=== PATIENT | female | born 1930 | race Caucasian/White ===

== ENCOUNTER 2018-04-15 14:16 | Emergency (ER) | payer MEDICARE ==
[~2018-04-15 14:16] MED LIST: ACE325 PO; ALP5 PO; ALPR-699 PO; ANUHCS PR; CIP500 PO; CIT500PT PO; CITA10SO9 PO; DAR100 PO; DON PO; DUL30 PO; EST42T PV; EZET1TAB64 PO; FELO10TA PO; FLUC100T35 PO; HYO375 PO; IBU200 PO; IRBE300T11 PO; LEVO88TA42 PO; LISI-368 PO; LOR5/325 PO; METH1TAB40 PO; MIR PO; NIT100 PO; OXY5 PO; OXYXL5 PO; PAN40 PO; PHENA200 PO; PRAM15FO9 RC; PRO100 PO; TRA50 PO; [UNRECOGNIZED DRUG - OTHER] INFIL
[2018-04-15] MEDS ORDERED: GABA-549 PO (14:29)
[2018-04-15 14:31] VITALS: BP 161/86
--- NOTE | 2018-04-15 14:35 | ER Report ---
History and Physical Time Seen By MD: 14:34 Hx. of Stated Complaint: tripped, mechanical fall down 5 stairs landing on concrete. Lac to R ear. Abrasion/skin tears bilateral elbow. No LOC. Pt denies head/neck/back pain. HPI/ROS CHIEF COMPLAINT: Fall downstairs HISTORY OF PRESENT ILLNESS: This is an 87-year-old female presents to the emergency department for a fall downstairs. Patient states that she was putting her glasses on and she stepped forward she missed one step and fell forward tumbling down several stairs, landing on a concrete floor. No loss of consciousness. Patient denies headaches, C-spine pain or visual changes. She does have small skin tears to bilateral elbows, however no significant elbow pain, no shoulder clavicle form or hand pain. No hip pain, abdominal pain or lower extremity pain either. She did have a small nonsuturable laceration/abrasion to the helix of the right ear. The patient has no other complaints. She is not taking anticoagulation, no regular aspirin dosing. No fevers or chills. No nausea vomiting. No chest pain or shortness breath. REVIEW OF SYSTEMS: Constitutional: No fever, no chills. Eyes: No discharge. ENT: No sore throat. Cardiovascular: No chest pain, no palpitations. Respiratory: No cough, no shortness of breath. Gastrointestinal: No abdominal pain, no vomiting. Genitourinary: No hematuria. Musculoskeletal: As above. Skin: As above. Neurological: No headache. Allergies: Coded Allergies: Sulfa (Sulfonamide Antibiotics) (Verified Allergy, Mild, HIVES, 04/15/18) niacin (Verified Allergy, Mild, 04/15/18) Home Meds Reported Medications Gabapentin (GABAPENTIN) 300 Mg Capsule, 200 MG PO TID, CAPSULE 04/15/18 Lisinopril (Lisinopril) 20 Mg Tablet, 40 MG PO DAILY, 0 Refills 03/16/11 Polyethylene Glycol (Miralax) 17 Gm Powd, PO USE TWICE - THREE TIMES A DAY UNTIL RESULTS ARE ACHIEVED. 03/16/11 Felodipine (Plendil) 10 Mg Tab.sr.24h, 10 MG PO DAILY 03/16/11 Levothyroxine Sodium (Levothyroxine Sodium) 88 Mcg Tablet, 75 MCG PO DAILY 03/16/11 Pantoprazole Sod (Protonix) 40 Mg Tabec, 40 MG PO QDAY 03/16/11 Past Medical/Surgical History The patient has a past medical surgical history of hypertension, hemorrhoids, GERD, appendectomy, vaginal discomfort, urine tract infections, ankle fracture, cataracts, wears glasses, macular degeneration, thyroidectomy, hypothyroidism, depression, breast cancer, right-sided mastectomy, hemorrhoidectomy, colonoscopy, left ankle surgery. Reviewed Nurses Notes: Yes Hx Smoking: No Hx Substance Use Disorder: No Hx Alcohol Use: No Constitutional Vital Sign - Last 24 Hours 04/15/18 04/15/18 14:31 19:46 Temp 97.8 Pulse 68 Resp 14 16 B/P (MAP) 161/86 Pulse Ox 80 88 O2 Delivery Room Air Room Air Physical Exam General Appearance: The patient is alert, has no immediate need for airway protection and no signs of toxicity. Eyes: Pupils equal and round no pallor or injection. EOMs intact. ENT, Mouth: Mucous membranes are moist. No hemotympanum. Respiratory: There are no retractions, lungs are clear to auscultation. Cardiovascular: Regular rate and rhythm, mild systolic murmur, no clicks or rubs. Gastrointestinal: Abdomen is soft and non tender, no masses, bowel sounds normal. Neurological: Alert and oriented 4. Moving all extremities. Following. No focal neuro deficits. Skin: Skin tear to bilateral elbows, bleeding controlled, small abrasion/laceration to the helix of the right ear, nonsuturable. Musculoskeletal: Neck is supple non tender. Extremities are nontender, nonswollen and have full range of motion. DIFFERENTIAL DIAGNOSIS: After history and physical exam differential diagnosis was considered for contusion, abrasion, skin tear, subdural bleed, cervical spine fracture, cervical strain. Medical Decision Making EKG/Imaging Imaging Location: [facility] [place] Patient: Henna Perez : 1930 Visit/Account:[id number] Date of Sevice: 04/15/2018 EXAMINATION: CT Head without intravenous contrast CT Cervical spine without intravenous contrast HISTORY: Trauma. TECHNIQUE: Head: Axial images were obtained from the skull base to the vertex without intravenous contrast. Sagittal and coronal reformatted images are also submitted. Cervical spine: Axial images were obtained from the skull base through the upper thoracic spine without IV contrast administration. Coronal and sagittal reformatted images were obtained from the axial source data. One of the following dose optimization techniques was utilized in the performance of this exam: Automated exposure control; adjustment of the mA and/or kV according to the patient's size; or use of an iterative reconstruction technique. Specific details can be referenced in the facility's radiology CT exam operational policy. COMPARISON: None available. FINDINGS: HEAD: Brain volume: Mild generalized volume loss. Ventricles: Negative. Acute ischemic changes: None. Hemorrhage: None. Masses / edema: None. Simmons-white: Negative. White matter: Moderate chronic microvascular ischemic changes. Vessels: Calcified plaque in the carotid siphons and vertebral arteries. Normal density in the dural venous sinuses. Extra-axial: Negative. Calvarium / skull base: Negative. Visualized sinuses / orbits: Rightward nasal septal deviation. Partially opacified right frontal sinus. CERVICAL SPINE: Alignment: Mild convex leftward curvature. Cranio-cervical junction: Degenerative changes with normal alignment. Vertebral bodies: Negative. Posterior elements: Multilevel facet hypertrophy. Hardware: None. Disc Spaces: Multilevel degenerative disc disease. Soft tissues: No prevertebral soft tissue swelling. Calcified plaque in the bilateral carotid arteries. Visualized upper chest: Negative. IMPRESSION: 1. No acute intracranial abnormality. 2. No acute cervical spine fracture. 3. Moderate chronic microvascular ischemic changes in the brain. 4. Multilevel degenerative disc disease and facet hypertrophy in the cervical spine with mild convex leftward curvature. 5. Partially opacified right frontal sinus. Rightward nasal septal deviation. Report Dictated By: Steven Gipson MD at 04/15/2018 3:57 PM Report E-Signed By: Steven Gipson MD at 04/15/2018 4:07 PM [id number] ED Course/Re-evaluation ED Course The patient was admitted to a room. A history and physical were obtained. Differential diagnoses were considered. A CT of the head and neck were negative for any acute abnormalities. I reviewed the imaging results with the patient and the family. The patient's elbows were cleansed and dressed with bacitracin and Adaptic and a nonadhesive covering. The injury to the right ear was nonsuturable, he was cleansed and bacitracin was applied. The patient was instructed to follow-up with her primary care provider. Return to the ER for any other concerns or worsening symptoms. Take Tylenol as needed for pain. The patient's family twist understanding with discharged home. Decision to Disposition Date: Apr 15, 2018 Decision to Disposition Time: 16:19 Depart Departure Latest Vital Signs Vital Signs Date Time Temp Pulse Resp B/P (MAP) Pulse Ox O2 Delivery O2 Flow Rate FiO2 04/15/18 19:46 16 88 Room Air 04/15/18 14:31 97.8 68 161/86 Impression: Primary Impression: Fall down stairs Additional Impressions: Skin tear of elbow without complication Contusion Condition: Improved Disposition: HOME OR SELF-CARE Referrals: NIA ROSADO (PCP) Patient Instructions: Fall Prevention (ED) Additional Instructions: No acute findings on the CT of the brain or cervical spine. I would recommend following up with your primary care provider within one week for reevaluation. Return to the ER for any concerns or worsening symptoms. Drink plenty of water. Get plenty of rest. Problem Qualifiers Primary Impression: Fall down stairs Encounter type: initial encounter Qualified Codes: W10.8XXA - Fall (on) (from) other stairs and steps, initial encounter Additional Impressions: Skin tear of elbow without complication Encounter type: initial encounter Laterality: unspecified laterality Qualified Codes: S51.019A - Laceration without foreign body of unspecified elbow, initial encounter Contusion Encounter type: initial encounter Contusion area: upper arm Laterality: unspecified laterality Qualified Codes: S40.029A - Contusion of unspecified upper arm, initial encounter STEVEN KIRKLAND-BC Apr 15, 2018 14:34
[2018-04-15] MEDS ORDERED: DIPHTH/TETANUS/ACEL. PERTUSSIS IM ONLY ONE (14:55)
--- NOTE | 2018-04-15 16:11 | RADIOLOGY IMAGING REPORT ---
FACILITY: [facility] PATIENT NAME: Henna Perez : 1930 MR: [id number] V: [id number] EXAM DATE: ORDERING PHYSICIAN: STEVEN KIRKLAND TECHNOLOGIST: [place] [facility] [place] Henna [place] : 1930 Visit/Account:[id number] Date of Sevice: 04/15/2018 EXAMINATION: CT Head without intravenous contrast CT Cervical spine without intravenous contrast HISTORY: Trauma. TECHNIQUE: Head: Axial images were obtained from the skull base to the vertex without intravenous contrast. Sa gittal and coronal reformatted images are also submitted. Cervical spine: Axial images were obtained from the skull base through the upper thoracic spine with out IV contrast administration. Coronal and sagittal reformatted images were obtained from the axial source data. One of the following dose optimization techniques was utilized in the performance of this exam: Autom ated exposure control; adjustment of the mA and/or kV according to the patient's size; or use of an i terative reconstruction technique. Specific details can be referenced in the facility's radiology C T exam operational policy. COMPARISON: None available. FINDINGS: HEAD: Brain volume: Mild generalized volume loss. Ventricles: Negative. Acute ischemic changes: None. Hemorrhage: None. Masses / edema: None. Simmons-white: Negative. White matter: Moderate chronic microvascular ischemic changes. Vessels: Calcified plaque in the carotid siphons and vertebral arteries. Normal density in the dural venous sinuses. Extra-axial: Negative. Calvarium / skull base: Negative. Visualized sinuses / orbits: Rightward nasal septal deviation. Partially opacified right frontal sin us. CERVICAL SPINE: Alignment: Mild convex leftward curvature. Cranio-cervical junction: Degenerative changes with normal alignment. Vertebral bodies: Negative. Posterior elements: Multilevel facet hypertrophy. Hardware: None. Disc Spaces: Multilevel degenerative disc disease. Soft tissues: No prevertebral soft tissue swelling. Calcified plaque in the bilateral carotid arterie s. Visualized upper chest: Negative. IMPRESSION: 1. No acute intracranial abnormality. 2. No acute cervical spine fracture. 3. Moderate chronic microvascular ischemic changes in the brain. 4. Multilevel degenerative disc disease and facet hypertrophy in the cervical spine with mild convex leftward curvature. 5. Partially opacified right frontal sinus. Rightward nasal septal deviation. Report Dictated By: Steven Gipson MD at 04/15/2018 3:57 PM Report E-Signed By: Steven Gipson MD at 04/15/2018 4:07 PM [id number]
--- NOTE | 2018-04-15 16:12 | RADIOLOGY IMAGING REPORT ---
FACILITY: [facility] - [place] PATIENT NAME: Henna Perez : 1930 MR: [id number] V: [id number] EXAM DATE: ORDERING PHYSICIAN: STEVEN KIRKLAND TECHNOLOGIST: Location: [facility] - [place] Patient: Henna Perez : 1930 Visit/Account:[id number] Date of Sevice: 04/15/2018 EXAMINATION: CT Head without intravenous contrast CT Cervical spine without intravenous contrast HISTORY: Trauma. TECHNIQUE: Head: Axial images were obtained from the skull base to the vertex without intravenous contrast. Sa gittal and coronal reformatted images are also submitted. Cervical spine: Axial images were obtained from the skull base through the upper thoracic spine with out IV contrast administration. Coronal and sagittal reformatted images were obtained from the axial source data. One of the following dose optimization techniques was utilized in the performance of this exam: Autom ated exposure control; adjustment of the mA and/or kV according to the patient's size; or use of an i terative reconstruction technique. Specific details can be referenced in the facility's radiology C T exam operational policy. COMPARISON: None available. FINDINGS: HEAD: Brain volume: Mild generalized volume loss. Ventricles: Negative. Acute ischemic changes: None. Hemorrhage: None. Masses / edema: None. Simmons-white: Negative. White matter: Moderate chronic microvascular ischemic changes. Vessels: Calcified plaque in the carotid siphons and vertebral arteries. Normal density in the dural venous sinuses. Extra-axial: Negative. Calvarium / skull base: Negative. Visualized sinuses / orbits: Rightward nasal septal deviation. Partially opacified right frontal sin us. CERVICAL SPINE: Alignment: Mild convex leftward curvature. Cranio-cervical junction: Degenerative changes with normal alignment. Vertebral bodies: Negative. Posterior elements: Multilevel facet hypertrophy. Hardware: None. Disc Spaces: Multilevel degenerative disc disease. Soft tissues: No prevertebral soft tissue swelling. Calcified plaque in the bilateral carotid arterie s. Visualized upper chest: Negative. IMPRESSION: 1. No acute intracranial abnormality. 2. No acute cervical spine fracture. 3. Moderate chronic microvascular ischemic changes in the brain. 4. Multilevel degenerative disc disease and facet hypertrophy in the cervical spine with mild convex leftward curvature. 5. Partially opacified right frontal sinus. Rightward nasal septal deviation. Report Dictated By: Steven Gipson MD at 04/15/2018 3:57 PM Report E-Signed By: Steven Gipson MD at 04/15/2018 4:07 PM [id number]
== END 2018-04-15 16:55 | disposition home or self-care (01) ==
LOC: ER 14:41
DX: S51.012A Laceration without foreign body of left elbow, initial encounter (principal); S51.011A Laceration without foreign body of right elbow, initial encounter; S01.311A Laceration without foreign body of right ear, initial encounter; W10.9XXA Fall (on) (from) unspecified stairs and steps, initial encounter
CPT/HCPCS: 70450; 72125; 90471; 90715; 99284

== ENCOUNTER → 2018-06-13 | Outpatient (CLI) | payer MEDICARE ==
[~2018-06-13] MED LIST changes: +ACET-1966 PO; +AREDS 2 PO; +DORZ10DR3 OP; +DULO30CA35 PO; +GABA-547 PO; +GABA-549 PO; +IBUP-136 PO; +INDA75CA IH; +LEVO50TA86 PO; +LEVO75TA73 PO; +LIDO15SO2 TD; +LISI30TA49 PO; +OMEG-36 PO; +OXYGENHOME INH; +TETR15DR9 OP
[2018-06-13 12:44] LABS: PLATELET COUNT, AUTOMATED 187 K/uL (150-450)
--- NOTE | 2018-06-13 13:30 | RADIOLOGY IMAGING REPORT ---
FACILITY: [facility] PATIENT NAME: Henna Perez : 1930 MR: [id number] V: [id number] EXAM DATE: ORDERING PHYSICIAN: DIRK GODINEZ TECHNOLOGIST: Location: [facility] Patient: Henna Perez : 1930 Visit/Account:[id number] Date of Sevice: 06/13/2018 Study: Frontal and lateral views of the chest Indication: Chronic respiratory failure Comparison study: November 25, 2005 Findings: PA and lateral views of the chest demonstrate no evidence of acute infiltrate. There is i nterstitial prominence at the lung bases. This is not significantly changed from the previous study. There is no evidence of pleural effusion. There is no evidence of pneumothorax. The mediastinal, cardiac, and diaphragmatic contours are unremarkable. There is worsening atheroscle rotic calcification of the aorta noted. The visualized bony structures are unremarkable. IMPRESSION: No acute cardiopulmonary abnormality identified. Report Dictated By: Shashi Chavez at 06/13/2018 1:24 PM Report E-Signed By: Shashi Chavez at 06/13/2018 1:25 PM WSN:[id number]
== END ==
LOC: LAB 11:59
PROVIDERS: ATTEND Emergency Medicine
DX: J96.11 Chronic respiratory failure with hypoxia (principal)
CPT/HCPCS: 36415; 71046; 82607; 83880; 85025; 85379